=== PATIENT | male | born 1975 | race Caucasian/White ===

== ENCOUNTER 2016-11-23 17:15 | Inpatient (IN) | payer MEDICAID, OTHER ==
[~2016-11-23] VITALS: Ht 175.3 cm; Wt 91.6 kg
[~2016-11-23 17:15] MED LIST: QUET100 PO
[2016-11-23 18:26] VITALS: BP 121/73; PULSE 76; RESP 19; TEMP 98.4; O2SAT 97
[2016-11-23] MEDS ORDERED: LORazepam 1 MG TAB PO PRN (18:45)
[2016-11-23] MEDS ORDERED: ALUMINUM/MAGNESIUM/SIMETH 30 ML CUP PO PRN (18:45)
[2016-11-23] MEDS ORDERED: LORazepam 2 MG/ML VIAL IM PRN (18:45)
[2016-11-23] MEDS ORDERED: ACETAMINOPHEN 325 MG TAB PO PRN (18:45)
[2016-11-23] MEDS ORDERED: MAGNESIUM HYDROXIDE SUSP 30 ML CUP PO PRN (18:45)
[2016-11-23] MEDS ORDERED: REMOVE OLD NICODERM (NICOTINE) PATCH TD SCH (21:00)
[2016-11-24 05:49] VITALS: BP 126/61; PULSE 69; RESP 18; TEMP 97.3; O2SAT 96
[2016-11-24 07:59] LABS: ANION GAP 7 MEQ/L (5-15); BICARBONATE 24.5 MEQ/L (21.0-32.0); BLOOD UREA NITROGEN 12 MG/DL (7-18); CHLORIDE 108 MEQ/L (98-107); GLOMERULAR FILTRATION RATE 108 ML/MIN (>89); POTASSIUM 3.9 MEQ/L (3.5-5.1); SODIUM (NA) 139 MEQ/L (136-145)
[2016-11-24 08:01] LABS: HDL CHOLESTEROL 44.5 MG/DL (40.0-60.0); LDL CHOLESTEROL 109 MG/DL (0-99)
[2016-11-24] MEDS ORDERED: NICOTINE 21 MG/24 HR PATCH TD SCH (09:00)
[2016-11-24] MEDS ORDERED: INFLUENZA VIRUS VACCINE (QUADRIVALENT) 0.5 ML SYR IM ONE (10:00)
[2016-11-24] MEDS ORDERED: PNEUMOCOCCAL POLYVALENT INJ 25 MCG/0.5 ML SYR IM ONE (10:00)
[2016-11-24] MEDS ORDERED: diphenhydrAMINE HCL 50 MG/ML VIAL IM ONE (12:15)
[2016-11-24] MEDS ORDERED: HALOPERIDOL LACTATE 5 MG/ML AMP IM ONE (12:15)
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
[2016-11-24 15:54] LABS: HEMOGLOBIN A1a 1.1 %; HEMOGLOBIN A1b 0.7 %; HEMOGLOBIN Ao 87.1 %; HEMOGLOBIN F 1.3 %; HEMOGLOBIN LA1C 1.7 %; HEMOGLOBIN P3 3.1 %
== END 2016-11-24 14:01 | disposition left against medical advice (07) | DRG 894 ==
LOC: H270 17:15
PROVIDERS: ADMIT Psychiatry & Neurology Psychiatry; ATTEND Psychiatry & Neurology Psychiatry
DX: F14.10 Cocaine abuse, uncomplicated (principal); Z72.811 Adult antisocial behavior
CPT/HCPCS: 80048; 80061; 83036

== ENCOUNTER 2016-11-24 23:53 | Inpatient (IN) | payer MEDICAID, OTHER ==
[~2016-11-24] VITALS: Ht 172.7 cm; Wt 92.0 kg
[2016-11-25 01:30] VITALS: BP 130/67; PULSE 77; RESP 18; TEMP 97.9
[2016-11-25] MEDS ORDERED: ALUMINUM/MAGNESIUM/SIMETH 30 ML CUP PO PRN (02:00)
[2016-11-25] MEDS ORDERED: diphenhydrAMINE HCL 50 MG CAP - HS PRN PO (02:00)
[2016-11-25] MEDS ORDERED: ACETAMINOPHEN 325 MG TAB PO PRN (02:00)
[2016-11-25] MEDS ORDERED: MAGNESIUM HYDROXIDE SUSP 30 ML CUP PO PRN (02:00)
[2016-11-25] MEDS ORDERED: diphenhydrAMINE HCL 50 MG/ML VIAL - HS PRN IM (02:00)
[2016-11-25] MEDS: hydrOXYzine HCL 50 MG TAB PO PRN ×2 (02:04→20:21)
[2016-11-25 06:15] VITALS: BP 106/51; PULSE 59; RESP 18; TEMP 97.9; O2SAT 96
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
[2016-11-25] MEDS ORDERED: diphenhydrAMINE HCL 50 MG/ML VIAL IM PRN (14:00)
[2016-11-25 14:16] LABS: BICARBONATE 26.6 MEQ/L (21.0-32.0)
[2016-11-25 14:17] LABS: POTASSIUM 4.1 MEQ/L (3.5-5.1)
[2016-11-25 19:41] VITALS: BP 126/73; PULSE 63; RESP 18; TEMP 97.9; O2SAT 97
[2016-11-25] MEDS: MIRTAZAPINE 15 MG TAB PO SCH (20:19)
[2016-11-25] MEDS: BACITRACIN TOP OINT 15 GM TUBE TOP SCH (21:04)
[2016-11-26 05:26] VITALS: BP 117/67; PULSE 60; RESP 18; TEMP 97.7; O2SAT 97
[2016-11-26] MEDS ORDERED: PNEUMOCOCCAL POLYVALENT INJ 25 MCG/0.5 ML SYR IM ONE (09:00)
[2016-11-26] MEDS ORDERED: INFLUENZA VIRUS VACCINE (QUADRIVALENT) 0.5 ML SYR IM ONE (09:00)
[2016-11-26 09:51] LABS: FREE T3 2.7 PG/ML (2.18-3.98); FREE T4 0.9 NG/DL (0.76-1.46)
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
[2016-11-26] MEDS: BACITRACIN TOP OINT 15 GM TUBE TOP SCH ×2 (15:45→21:00)
[2016-11-26 18:00] VITALS: BP 108/66; PULSE 62; RESP 18; TEMP 99.2; O2SAT 98
[2016-11-26 19:47] VITALS: BP 108/66; PULSE 62; RESP 18; TEMP 99.2; O2SAT 98
[2016-11-26] MEDS: diphenhydrAMINE HCL 50 MG CAP PO PRN (20:46)
[2016-11-26] MEDS: MIRTAZAPINE 15 MG TAB PO SCH (21:00)
[2016-11-26] MEDS: hydrOXYzine HCL 50 MG TAB PO PRN (22:28)
[2016-11-27 05:22] VITALS: BP 137/83; PULSE 66; RESP 18; TEMP 98.4
[2016-11-27] MEDS: BACITRACIN TOP OINT 15 GM TUBE TOP SCH ×2 (09:00→20:26)
[2016-11-27 09:46] VITALS: BP 137/83; PULSE 66; RESP 18; TEMP 98.1; O2SAT 96
[2016-11-27 09:47] VITALS: TEMP 98.4
--- NOTE | 2016-11-27 14:27 | HHI.PYPN ---
Subjective Remarks Pt seen and discussed with staff. He continues to c/o chronic thoughts of self- injurious behaviors but has not engaged in them. He initially states that he is hearing voices but with extended interviewing pt states that these are his own thoughts about self-harming and worthlessness."I think about scratching my eyes and face" He is taking medications and denies side effects. He has not been disruptive on milieu. He denies active suicide plan. Review of Systems Psychiatric: COMPLAINS OF: Mood changes Objective Alert: Yes [place]: Person, Place, Date, Situation Mood: Anxious, Depressed Affect: Labile Memory Intact: Immediate, Recent, Remote Hallucinations: Other (none) Delusions: No Delusion Type: Other Suicidal: Ideation Homicidal: Ideation Insight/Judgement poor Vitals/IOs Vital Signs Date Time Temp Pulse Resp B/P Pulse Ox O2 Delivery O2 Flow Rate FiO2 11/27/16 09:47 98.4 11/27/16 09:46 66 18 96 Assessment & Plan Problem List: (1) Cocaine abuse with cocaine-induced mood disorder ICD Code: F14.14 (2) Antisocial personality disorder ICD Code: F60.2 Assessment & Plan Continue current tx plan. Thorazine as needed for agitation. Continue close observation. Estimated LOS: days Justification for Cont. Inpt. impairments in safety Request HC Surrog/Guard Advoc?: Tracy Gallegos MD Nov 27, 2016 14:27
[2016-11-27 19:21] VITALS: BP 127/76; PULSE 70; RESP 19; TEMP 98.1; O2SAT 93
[2016-11-27 20:00] VITALS: BP 127/76; PULSE 70; RESP 19; TEMP 98.1; O2SAT 93
[2016-11-27] MEDS: MIRTAZAPINE 15 MG TAB PO SCH (20:26)
[2016-11-27] MEDS: hydrOXYzine HCL 50 MG TAB PO PRN (20:28)
[2016-11-28 06:05] VITALS: BP 137/81; PULSE 75; RESP 16; TEMP 97.6; O2SAT 95
[2016-11-28] MEDS: BACITRACIN TOP OINT 15 GM TUBE TOP SCH ×2 (09:00→20:17)
--- NOTE | 2016-11-28 12:08 | HHI.PYPN ---
Subjective Remarks Patient seen and examined with counselor. Chart reviewed. Case discussed with RN, who reports patient complains of ongoing suicidal ideation. On my examination, patient remains quite manipulative. He insists that he has been biting himself on the forearms in the shower, but I see no evidence of any lesions or bite castle on the forearm. Likewise, he tries to pass off a bruise in his antecubital region from phlebotomy as a self-injury, even though there is a clear needle ethan from the phlebotomy. He says "I'm still hearing voices" although he cannot describe these in any detail. He continues to threaten suicide if discharged, saying that he will try to immolate himself with gasoline and maybe take some (nonspecific) other people out with him. He remains unhelpful with our attempts to obtain collateral. He says that the Remeron is not helping but he is completely unwilling, despite my repeated efforts, to engage in a discussion about medications. He instead insists that we must send him to the [facility], and this is the only way to avert disaster in his case. No side effects from medications. Review of Systems Other No somatic complaints today. Objective Alert: Yes [place]: Person, Place, Date Mood: Anxious Affect: Restricted (dysphoric) Memory Intact: Comment (Intact on clinical exam) Hallucinations: Auditory (vague), Visual (None) Delusions: No Delusion Type: Other (No delusions) Suicidal: Ideation (Threatens SI if he is discharged other than to the [facility]) Homicidal: Ideation (Threatens violence in the same context.) Insight/Judgement Fair Remarks No abnormal motor movements noted Labs Labs reviewed. No new labs. Repeat TFTs over the weekend were within normal limits. Vitals/IOs Vital Signs Date Time Temp Pulse Resp B/P Pulse Ox O2 Delivery O2 Flow Rate FiO2 11/28/16 06:05 97.6 75 16 137/81 95 Assessment & Plan Problem List: (1) Cocaine abuse with cocaine-induced mood disorder ICD Code: F14.14 (2) Antisocial personality disorder ICD Code: F60.2 Assessment & Plan Patient continues to threaten SI/HI if we don't send him to the [facility]. There has been no evidence of either suicidality or violence on the inpatient psychiatric unit. Overall presentation remains antisocial/malingered, but he seems antisocial enough to carry out his threats. Of course, this is not a reason to retain the patient in the hospital, but I will observe him somewhat longer to convince myself that there is no occult vee debra [place] I condition at play. I am also awaiting records from [facility]. He has been uniquely resistant to engaging in any sort of treatment planning, and I wonder if he is trying to extend his stay by his recalcitrance. He has also been unhelpful with regards to obtaining collateral, and it is my suspicion that he is trying in this way to control our access to information about his case. I will titrate his Remeron to target the ongoing dysphoria. Continue other medications and care as ordered. Justification for Cont. Inpt. Observing for impairments in safety. Discharge Planning Most likely home with outpatient follow up. Request HC Surrog/Guard Advoc?: No John Aquino MD Nov 28, 2016 12:08
[2016-11-28] MEDS: MIRTAZAPINE 15 MG TAB PO SCH (20:17)
[2016-11-28] MEDS: diphenhydrAMINE HCL 50 MG CAP PO PRN (20:17)
[2016-11-28] MEDS: hydrOXYzine HCL 50 MG TAB PO PRN (20:17)
[2016-11-28 21:56] VITALS: BP 121/75; PULSE 81; RESP 18; TEMP 98.7; O2SAT 98
[2016-11-29 05:11] VITALS: BP 133/78; PULSE 65; RESP 18; TEMP 98.4; O2SAT 94
[2016-11-29] MEDS: BACITRACIN TOP OINT 15 GM TUBE TOP SCH ×2 (09:00→20:36)
[2016-11-29] MEDS: NICOTINE 14 MG/24 HR PATCH TD SCH (10:30)
--- NOTE | 2016-11-29 10:30 | HHI.PYPN ---
Subjective Remarks Patient seen and examined with counselor and tech. Chart reviewed. Case discussed in treatment team with nursing staff, counselor and occupational therapist. Per nursing staff, patient continues to threaten suicide only if discharged. He also apparently called DCF and made a complaint that he was being held in the hospital involuntarily, even though he is here on voluntary status. Today for me, patient seems to be taking a different approach. He greets me warmly and is complementary about the care I have provided him. He does remain somewhat faultfinding and passive aggressive generally. He does not make any threats of harm to self/others for me today and seems at least superficially more willing to discuss treatment plan in a meaningful way. He now says that he would like us to try to get him into a sober living or therapeutic farm program, and he thinks there might be one for him in [place]. He now says he feels like we are on the right track with Remeron and reports it is helping him sleep better. He denies side effects from medications. Review of Systems Other No somatic complaints today. Objective Alert: Yes [place]: Person, Place, Date Mood: Calm Affect: Euthymic Memory Intact: Comment (Remains intact) Hallucinations: Auditory (remain quite vague), Visual (No VH) Delusions: No Delusion Type: Other (No evident delusions) Suicidal: Ideation (No SI voiced to me today) Homicidal: Ideation (No HI voiced to me today) Insight/Judgement Fair Remarks TP linear. Speech wnl for rate, tone, volume. No abnormal motor movements noted. Labs Labs reviewed. No new labs. Vitals/IOs Vital Signs Date Time Temp Pulse Resp B/P Pulse Ox O2 Delivery O2 Flow Rate FiO2 11/29/16 05:11 98.4 65 18 133/78 94 Assessment & Plan Problem List: (1) Cocaine abuse with cocaine-induced mood disorder ICD Code: F14.14 (2) Antisocial personality disorder ICD Code: F60.2 Assessment & Plan Patient with ongoing manipulation and antisocial behavior. He does seem to be modifying his approach in his interaction with me today. Goal seems to be some sort of long-term placement. If this can be arranged within a reasonable time- frame, it might provide the patient with a face-saving departure and reduce likelihood of retributive violence to self/others attendant in his antisocial personality structure. Counselor to explore sober living placement or therapeutic farm community. For now I will continue his Remeron with possible plans to titrate. Records requested from [facility], but we have received nothing from them. Continue other medications and care as ordered. Justification for Cont. Inpt. Observing for impairments in safety. None noted so far on inpatient unit. Discharge Planning Possible placement? Request HC Surrog/Guard Advoc?: No John Aquino MD Nov 29, 2016 10:30
[2016-11-29] MEDS: MIRTAZAPINE 15 MG TAB PO SCH (20:36)
[2016-11-29] MEDS ORDERED: REMOVE OLD NICODERM (NICOTINE) PATCH TD SCH (21:00)
[2016-11-29 21:34] VITALS: BP 127/87; PULSE 73; RESP 18; TEMP 97.7; O2SAT 100
[2016-11-30 06:13] VITALS: BP 115/67; PULSE 59; RESP 18; TEMP 98; O2SAT 97
[2016-11-30] MEDS: NICOTINE 14 MG/24 HR PATCH TD SCH (09:00)
[2016-11-30] MEDS: BACITRACIN TOP OINT 15 GM TUBE TOP SCH (09:43)
[2016-11-30] MEDS ORDERED: REME30TA PO (11:43)
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
== END 2016-11-30 13:40 | disposition home or self-care (01) | DRG 882 ==
LOC: H270 11-25 01:20
PROVIDERS: ADMIT Psychiatry & Neurology Psychiatry; ATTEND Psychiatry & Neurology Psychiatry
DX: F43.29 Adjustment disorder with other symptoms (principal); F14.14 Cocaine abuse with cocaine-induced mood disorder; F41.9 Anxiety disorder, unspecified; F60.2 Antisocial personality disorder; L98.8 Other specified disorders of the skin and subcutaneous tissue; Z76.5 Malingerer [conscious simulation]; G47.00 Insomnia, unspecified
CPT/HCPCS: 80048; 80178; 84439; 84443; 84481; 90686; 90732; Q0163; Q2038